=== PATIENT | male | born 1965 | race Caucasian/White ===

== ENCOUNTER → 2017-12-02 | Outpatient (CLI) | payer OTHER | END | disposition home or self-care (01) | LOC: KCIC US 13:46 | DX: I82.4Z1 Acute embolism and thrombosis of unspecified deep veins of right distal lower extremity (principal); R59.0 Localized enlarged lymph nodes | CPT/HCPCS: 93971 ==

== ENCOUNTER 2019-07-30 17:12 | Emergency (ER) | payer OTHER ==
[~2019-07-30] VITALS: Ht 182.9 cm; Wt 120.2 kg
[2019-07-30] MEDS ORDERED: KETOROLAC 30 MG/ML VIAL. IM STA (17:31)
--- NOTE | 2019-07-30 17:35 | PHYS DOC ---
Past Medical History Attending Signature I have participated in the care of this patient and I have reviewed and agree with all pertinent clinical information above including history, exam, and recommendations. (GÓMEZ THOMAS MD) Adult General Chief Complaint Chief Complaint: LACERATION/AVULSION HPI HPI Patient is a 54 year old male that presents after cutting the distal end of his L 1st digit with a zoo caretaker knife around 5:00 when he was cutting cabbage. The patient states he is up-to-date on his tetanus shot and had around a month ago. The patient rates his pain is 2 out of 10 in severity and throbbing. (PENNIE MELENDEZ APRN) Review of Systems Review of Systems Constitutional: Denies fever or chills [] Eyes: Denies change in visual acuity, redness, or eye pain [] HENT: Denies nasal congestion or sore throat [] Respiratory: Denies cough or shortness of breath [] Cardiovascular: No additional information not addressed in HPI [] GI: Denies abdominal pain, nausea, vomiting, bloody stools or diarrhea [] : Denies dysuria or hematuria [] Musculoskeletal: Denies back pain or joint pain [] Integument: Reports laceration to L 1st digit. Neurologic: Denies headache, focal weakness or sensory changes [] Endocrine: Denies polyuria or polydipsia [] Complete systems were reviewed and found to be within normal limits, except as documented in this note. (PENNIE MELENDEZ APRN) Current Medications Current Medications Current Medications Medications (Trade) Dose Ordered Sig/Juan David Start Time Stop Time Status Last Admin Dose Admin Cellulose (Surgicel Hemostat 4x8) 1 each 1X ONCE 07/30/19 18:00 07/30/19 18:01 Cancel Gelatin (Gelfoam Size 12-7mm) 1 each 1X ONCE 07/30/19 18:15 07/30/19 18:16 DC 07/30/19 18:15 1 EACH Ketorolac Tromethamine (Toradol 30mg Vial) 30 mg 1X STAT 07/30/19 17:31 07/30/19 17:37 DC 07/30/19 17:50 30 MG (GÓMEZ THOMAS MD) Allergies Allergies Allergies Coded Allergies Type Severity Reaction Last Updated Verified No Known Drug Allergies 07/30/19 No (GÓMEZ THOMAS MD) Physical Exam Physical Exam Constitutional: Well developed, well nourished, no acute distress, non-toxic appearance. [] HENT: Normocephalic, atraumatic, bilateral external ears normal, oropharynx moist, no oral exudates, nose normal. [] Eyes: PERRLA, EOMI, conjunctiva normal, no discharge. [] Neck: Normal range of motion, no tenderness, supple, no stridor. [] Cardiovascular:Heart rate regular rhythm, no murmur [] Lungs & Thorax: Bilateral breath sounds clear to auscultation [] Abdomen: Bowel sounds normal, soft, no tenderness, no masses, no pulsatile masses. [] Skin: finger tip avulsion to L first digit. Back: No tenderness, no CVA tenderness. [] Extremities: No tenderness, no cyanosis, no clubbing, ROM intact, no edema. [] Neurologic: Alert and oriented X 3, normal motor function, normal sensory function, no focal deficits noted. [] Psychologic: Affect normal, judgement normal, mood normal. [] (PENNIE MELENDEZ APRN) Current Patient Data Vital Signs Vital Signs Date Time Temp Pulse Resp B/P (MAP) Pulse Ox O2 Delivery O2 Flow Rate FiO2 07/30/19 17:38 98.2 99 16 135/80 (98) 97 Room Air 98.2 (GÓMEZ THOMAS MD) EKG EKG [] (PENNIE MELENDEZ APRN) Radiology/Procedures Radiology/Procedures [facility] [address] [place] [address] IMAGING REPORT Signed PATIENT: TIM HAYWARD ACCOUNT: [id number] : 1965 LOCATION: ER AGE: 54 SEX: M EXAM STATUS: REG ER ORD. PHYSICIAN: PENNIE MELENDEZ APRN REASON: cut 1st digit with knife PROCEDURE: HAND LEFT 3V Left hand 3 views. HISTORY: Cut first digit with knife 3 views were taken the left hand. Soft tissue injury at the distal aspect of the thumb. There is no fracture or bony destructive process or acute osseous abnormality. There is no opaque foreign body. IMPRESSION: 1. No fracture or osseous abnormality in the left hand. Electronically signed by: Karthik Alcala MD (07/30/2019 5:54 PM) [id number] DICTATED and SIGNED BY: KARTHIK ALCALA MD DATE: 07/30/19 1755 (PENNIE MELENDEZ APRN) Course & Med Decision Making Course & Med Decision Making Pertinent Labs and Imaging studies reviewed. (See chart for details) Will get X-ray to L hand. (PENNIE MELENDEZ APRN) Dragon Disclaimer Dragon Disclaimer This electronic medical record was generated, in whole or in part, using a voice recognition dictation system. (PENNIE MELENDEZ APRN) Departure Departure Impression: Primary Impression: Fingertip avulsion Disposition: HOME, SELF-CARE Condition: STABLE Referrals: JJ AGUILAR (PCP) Patient Instructions: Finger Avulsion Additional Instructions: Thank you for visiting [facility]. We appreciate you trusting us with your care. If any additional problems come up don't hesitate to return to visit us. Please follow up with your primary care provider so they can plan additional care if needed and know about the problem that you had. If symptoms worsen come back to the Emergency Department. Any concerning symptoms that start such as chest pain, shortness of air, weakness or numbness on one side of the body, running high fevers or any other concerning symptoms return to the ER. Please make an appointment to follow up with: Dr. Nick Solomon (Hand Surgeon ) Address: [address] [place] [address] Problem Qualifiers Primary Impression: Fingertip avulsion Encounter type: initial encounter Qualified Codes: S61.209A - Unspecified open wound of unspecified finger without damage to nail, initial encounter PENNIE MELENDEZ APRN Jul 30, 2019 17:35 GÓMEZ THOMAS MD Jul 31, 2019 09:38
[2019-07-30 17:38] VITALS: BP 135/80
--- NOTE | 2019-07-30 17:57 | RAD ---
Left hand 3 views. HISTORY: Cut first digit with knife 3 views were taken the left hand. Soft tissue injury at the distal aspect of the thumb. There is no fracture or bony destructive process or acute osseous abnormality. There is no opaque foreign body. IMPRESSION: 1. No fracture or osseous abnormality in the left hand. Electronically signed by: Karthik Alcala MD (07/30/2019 5:54 PM) [facility]
[2019-07-30] MEDS ORDERED: SURGICEL HEMOSTAT 4X8 EACH. TP ONE (18:00)
[2019-07-30] MEDS ORDERED: GELATIN SPONGE SIZE 12-7MM SPONGE. TP ONE (18:15)
== END 2019-07-30 18:22 | disposition home or self-care (01) ==
LOC: ER 17:12
DX: S61.012A Laceration without foreign body of left thumb without damage to nail, initial encounter (principal); W26.0XXA Contact with knife, initial encounter; Y93.89 Activity, other specified; Y92.89 Other specified places as the place of occurrence of the external cause; Y99.8 Other external cause status
CPT/HCPCS: 73130; 96372; 99284; J1885

== ENCOUNTER 2019-11-11 20:17 | Emergency (ER) | payer OTHER ==
[~2019-11-11] VITALS: Ht 188 cm; Wt 75.0 kg
[2019-11-11 22:00] VITALS: BP 137/92
--- NOTE | 2019-11-11 22:50 | PHYS DOC ---
Past Medical History Past Medical History: GERD, Prostatitis (PENNIE MELENDEZ APRN) Past Surgical History: Tonsillectomy (PENNIE MELENDEZ APRN) Alcohol Use: None Drug Use: None (PENNIE MELENDEZ APRN) Attending Signature I have participated in the care of this patient and I have reviewed and agree with all pertinent clinical information above including history, exam, and recommendations. (GÓMEZ THOMAS MD) Adult General Chief Complaint Chief Complaint: Congestion [facility] HPI Patient is a 54 year old male who presents with sore throat, sinus pressure, congestion, drainage that has been ongoing since October 13. The patient has seen multiple doctors for this complaint. The patient was originally given Augmentin on October 18, he also was given a Medrol Dosepak at that time. His symptoms do not improve. The patient was then giving doxycycline and prednisone by his primary care provider. His symptoms still did not improve. He was referred to an ENT and Opener. He has not yet seen either specialists, and came to the ER wanting to be put on antibiotics. Denies fever or any additional symptoms. Complete ROS were reviewed and found to be within normal limits, except as documented in the HPI (PENNIE MELENDEZ APRN) Allergies Allergies Allergies Coded Allergies Type Severity Reaction Last Updated Verified No Known Drug Allergies 07/30/19 No (GÓMEZ THOMAS MD) Physical Exam Physical Exam Constitutional: Well developed, well nourished, no acute distress, non-toxic appearance. [] HENT: Normocephalic, atraumatic, bilateral external ears normal, oropharynx moist, no oral exudates, nose turbinates are inflamed. Eyes: PERRLA, EOMI, conjunctiva normal, no discharge. [] Neck: Normal range of motion, no tenderness, supple, no stridor. [] Cardiovascular:Heart rate regular rhythm, no murmur [] Lungs & Thorax: Bilateral breath sounds clear to auscultation [] Skin: Warm, dry, no erythema, no rash. [] Neurologic: Alert and oriented X 3, normal motor function, normal sensory function, no focal deficits noted. [] Psychologic: Affect normal, judgement normal, mood normal. [] (PENNIE MELENDEZ APRN) Current Patient Data Vital Signs Vital Signs Date Time Temp Pulse Resp B/P (MAP) Pulse Ox O2 Delivery O2 Flow Rate FiO2 11/11/19 22:00 98.1 82 19 137/92 (107) 95 Room Air 98.1 (GÓMEZ THOMAS MD) EKG EKG [] (PENNIE MELENDEZ APRN) Radiology/Procedures Radiology/Procedures [] (PENNIE MELENDEZ APRN) Course & Med Decision Making Course & Med Decision Making Pertinent Labs and Imaging studies reviewed. (See chart for details) Discussed with patient that I agree with his provider and that he has already had two courses of antibiotics that did not work. He also has had two courses of steroids which did not work. I recommended Zyrtec for drainage and Mucinex for congestion. (PENNIE MELENDEZ APRN) Dragon Disclaimer Dragon Disclaimer This electronic medical record was generated, in whole or in part, using a voice recognition dictation system. (PENNIE MELENDEZ APRN) Departure Departure Impression: Primary Impression: Upper respiratory infection, viral Disposition: HOME, SELF-CARE Condition: STABLE Referrals: JJ AGUILAR (PCP) Patient Instructions: Upper Respiratory Infection, Adult Additional Instructions: Thank you for visiting [facility]. We appreciate you trusting us with your care. If any additional problems come up don't hesitate to return to visit us. Please follow up with your primary care provider so they can plan additional care if needed and know about the problem that you had. If symptoms worsen come back to the Emergency Department. Any concerning symptoms that start such as chest pain, shortness of air, weakness or numbness on one side of the body, running high fevers or any other concerning symptoms return to the ER. PENNIE MELENDEZ APRN Nov 11, 2019 22:50 GÓMEZ THOMAS MD Nov 12, 2019 00:57
== END 2019-11-11 22:50 | disposition home or self-care (01) ==
LOC: ER 20:17
DX: J06.9 Acute upper respiratory infection, unspecified (principal); R09.81 Nasal congestion; K21.9 Gastro-esophageal reflux disease without esophagitis; Z90.89 Acquired absence of other organs
CPT/HCPCS: 99281